=== PATIENT | male | born 1975 | race Caucasian/White ===

== ENCOUNTER 2020-02-06 01:56 | Inpatient (IN) | payer MEDICAID ==
[~2020-02-06] VITALS: Ht 185.4 cm; Wt 83.0 kg
[2020-02-06] MEDS ORDERED: SODIUM CHLORIDE 0.9% 1,000ML IVBOLUS ONE (02:00)
--- NOTE | 2020-02-06 02:08 | NUR ---
PT BIB [facility] FROM [facility]. PT PRESENTED THERE TODAY C/O N/V SINCE YESTERDAY. PT IS A DIABETIC AND REPORTED HIS BLOOD SUGARS HAD BEEN IN THE 300S. HE STEPPED ON A SPRING LAST WEEK AND WAS GETTING AN INFECTION. HE WAS SEEN AND WAS CURRENTLY BEING TREATED WITH CIPRO PO HOWEVER WAS CONTINUING TO GET WORSE. PT WAS FOUND TO BE IN [facility] AT THE SENDING FACILITY. HE WAS PLACED ON AN INSULIN DRIP AT 7.7 UNITS/HOUR, GIVEN A TOTAL OF 1600ML OF FLUID PRIOR TO ARRIVAL TO OUR ER, VANCOMYCIN IV, CIPRO IV AND PHENERGAN IM. UPON ARRIVAL TO THE ER, THE PT IS LETHARGIC BUT AROUSES TO VERBAL STIMULI. ANSWERS ORIENTATION QUESTIONS APPROPRIATELY. ALL MONITORING EQUIPMENT APPLIED, SHOWING SINUS TACH ON THE MONITOR AT A RATE OF 120, NO ECTOPY NOTED. ALL VITALS STABLE. EKG COMPLETE. PT HERE WITH CLOTHING, ONE CELL PHONE AND ONE BOOT. NO OTHER BELONGINGS PRESENT WITH PT. PT DENIES ANY NEEDS AT THIS TIME. DR. FORRESTER AT BEDSIDE EVALUATING PT
[2020-02-06 02:24] LABS: MEAN CORPUSCULAR HEMOGLOBIN 28.3 pg (27.5-34.5); MEAN CORPUSCULAR HGB CONC 32.1 g/dL (33.2-36.2); MEAN CORPUSCULAR VOLUME 87.9 fL (81-97); MEAN PLATELET VOLUME 7.5 fL (7.4-10.4); PLATELET COUNT 509 x10^3/uL (130-400); RED BLOOD COUNT 4.64 x10^6/uL (4.38-5.82); RED CELL DISTRIBUTION WIDTH 13.1 % (9.4-14.8)
[2020-02-06] MEDS ORDERED: SODIUM CHLORIDE 0.9% 1,000 ML IV ONE (02:24)
[2020-02-06] MEDS ORDERED: AMPICILLIN/SULBACTAM 3 GM in SODIUM CHLORIDE 0.9% 100 ML IV ONE (02:30)
[2020-02-06] MEDS ORDERED: SODIUM CHLORIDE FLUSH 10ML SYR IVF ONE (02:30)
[2020-02-06] MEDS ORDERED: REGULAR INSULIN 100 UNITS in SODIUM CHLORIDE 0.9% 99 ML IV PRN ×3 (02:30→03:54)
[2020-02-06] MEDS ORDERED: CIPROFLOXACIN/PMX 400MG/200ML 200 ML IV ONE (02:30)
[2020-02-06 02:34] LABS: ALANINE AMINOTRANSFERASE 17 U/L (12-78); ALBUMIN 2.9 g/dL (3.4-5.0); ANION GAP 20 mmol/L (5-15); CALCIUM 9.3 mg/dL (8.5-10.1); CHLORIDE 105 mmol/L (98-107); CREATININE 1.25 mg/dL (0.7-1.3)
[2020-02-06 02:37] LABS: ALKALINE PHOSPHATASE 117 U/L (45-117); BILIRUBIN,TOTAL 0.5 mg/dL (0.2-1.0); TOTAL PROTEIN 7.4 g/dL (6.4-8.2)
[2020-02-06] MEDS ORDERED: CIPROFLOXACIN/PMX 400MG/200ML 200 ML ONE (02:38)
--- NOTE | 2020-02-06 02:44 | NUR ---
PT VOIDED 950ML OF CLEAR YELLOW URINE
--- NOTE | 2020-02-06 02:45 | NUR ---
PT MEDICATED PER EMAR. 5 RIGHTS ADDRESSED
--- NOTE | 2020-02-06 02:50 | NUR ---
BLOOD GASES REDRAWN. CLARIFYING INSULIN TITRATION WITH PHARMACY AT THIS TIME. NO PROTOCOL LISTED IN EMAR.
[2020-02-06] MEDS ORDERED: PLEASE ENTER ALLERGIES MC SCH (03:00)
[2020-02-06 03:02] LABS: ACETONE, SERUM Large (80mg/dL) (Negative)
[2020-02-06 03:06] LABS: O2 FLOW 0 L/min; PH, VENOUS 7.156 pH (7.320-7.420)
[2020-02-06 03:13] LABS: BASOPHILS # (AUTO) 0.03 x10^3/uL (0-0.1); BASOPHILS % (AUTO) 0 % (0-1); EOSINOPHILS # (AUTO) 0.07 x10^3/uL (0-0.4); EOSINOPHILS % (AUTO) 0 % (1-7); LYMPHOCYTES # (AUTO) 0.89 x10^3/uL (1-3.4); LYMPHOCYTES % (AUTO) 5 % (22-44); MD SCAN; MONOCYTES # (AUTO) 0.77 x10^3/uL (0.2-0.8); MONOCYTES % (AUTO) 4 % (2-9); NEUTROPHILS # (AUTO) 17.77 x10^3/uL (1.8-6.8); NEUTROPHILS % (AUTO) 91 % (42-75)
[2020-02-06 03:13] LABS: HCT (SEDRATE) 37.2 % (39.2-51.8)
--- NOTE | 2020-02-06 03:39 | NUR ---
PT SLEEPING. AROUSES TO VERBAL STIMULI. REMAINS LETHARGIC. STILL ALERT AND ORIENTED. DENIES ANY NEEDS AT THIS TIME. AWAITING ROOM FOR PT IN CCU. ALL VITALS STABLE. WILL CONTINUE TO MONITOR.
[2020-02-06] MEDS: SODIUM CHLORIDE 0.9% 1,000 ML IV SCH ×3 (03:54→13:27)
[2020-02-06] MEDS: D5%-0.45NACL+KCL 20MEQ 1,000 ML IV SCH ×2 (03:54→09:33)
[2020-02-06] MEDS ORDERED: VANCOMYCIN PER PHARMACY MC PRN (04:00)
[2020-02-06] MEDS ORDERED: ONDANSETRON 2MG/ML, 2ML IV PRN (04:00)
[2020-02-06] MEDS ORDERED: PROMETHAZINE 25 MG/ML, 1ML IM PRN (04:00)
[2020-02-06] MEDS ORDERED: LACTULOSE 10 GM/15 ML UDC PO PRN (04:00)
[2020-02-06] MEDS ORDERED: ONDANSETRON ODT 4 MG PO PRN (04:00)
[2020-02-06] MEDS ORDERED: HYDROmorphone 2 MG/ML, 1ML IVPush PRN (04:00)
--- NOTE | 2020-02-06 04:12 | NUR ---
REPORT TO ANDRA HODGES
[2020-02-06 04:30] VITALS: BP 128/75
[2020-02-06 04:54] LABS: CHOL/HDL RATIO 2.6
[2020-02-06] MEDS ORDERED: PHARMACOKINETIC MONITORING MC PRN (05:00)
[2020-02-06] MEDS ORDERED: PHARMACOKINETIC CONSULTATION MC ONE (05:00)
[2020-02-06] MEDS ORDERED: FAMOTIDINE 20 MG/2 ML IVPush SCH (09:00)
[2020-02-06] MEDS ORDERED: ALBUMIN HUMAN 25% 100 ML ONE (09:38)
[2020-02-06] MEDS ORDERED: ALBUMIN HUMAN 5% 500 ML IV ONE (10:00)
[2020-02-06] MEDS ORDERED: GADOTERATE 7.5 MMOL/15 ML SYR ONE (10:20)
[2020-02-06] MEDS: PIPERACILLIN/TAZO/PMX 3.375GM 50 ML IV SCH ×3 (10:39→22:31)
[2020-02-06 11:10] LABS: ANION GAP 12 mmol/L (5-15); CHLORIDE 112 mmol/L (98-107); CREATININE 1.09 mg/dL (0.7-1.3)
[2020-02-06] MEDS: VANCOMYCIN 1,500 MG in SODIUM CHLORIDE 0.9% 250 ML IV SCH (12:56)
[2020-02-06] MEDS ORDERED: INSULIN GLARGINE 100 UNITS/ML, PEN SQ-INSULIN ONE (14:00)
[2020-02-06] MEDS ORDERED: ROSU10TA2 PO (14:30)
[2020-02-06] MEDS ORDERED: INSU100V8 SQ (14:30)
[2020-02-06] MEDS ORDERED: CLOP75TA52 PO (14:30)
[2020-02-06] MEDS ORDERED: INSU100I11 SC (14:30)
[2020-02-06] MEDS ORDERED: DILT120C80 PO (14:30)
[2020-02-06] MEDS ORDERED: CIPR500T87 PO (14:30)
[2020-02-06] MEDS: INSULIN LISPRO 100 UNITS/ML, PEN SQ-INSULIN SCH ×2 (16:38→20:54)
[2020-02-06] MEDS: ENALAPRILAT 1.25 MG/ML, 2ML IVPush PRN (16:38)
[2020-02-06 18:46] LABS: ANION GAP 9 mmol/L (5-15); CALCIUM 8.9 mg/dL (8.5-10.1); CHLORIDE 113 mmol/L (98-107); CREATININE 1.04 mg/dL (0.7-1.3)
[2020-02-06 19:12] VITALS: BP 157/77
[2020-02-06] MEDS: INSULIN GLARGINE 100 UNITS/ML, PEN SQ-INSULIN SCH (20:53)
[2020-02-06] MEDS: ATORVASTATIN 40 MG TABLET PO SCH (20:54)
[2020-02-06] MEDS ORDERED: TEMPLATE NON-FORMULARY MED. (Rosuvastatin Calcium** (Crestor**) 10 MG) PO SCH (21:00)
[2020-02-07 00:54] VITALS: BP 129/80
[2020-02-07] MEDS: VANCOMYCIN 1,500 MG in SODIUM CHLORIDE 0.9% 250 ML IV SCH ×3 (00:59→23:55)
[2020-02-07] MEDS: SODIUM CHLORIDE 0.9% 1,000 ML IV SCH ×2 (04:17→18:36)
[2020-02-07] MEDS: PIPERACILLIN/TAZO/PMX 3.375GM 50 ML IV SCH ×4 (04:20→21:53)
[2020-02-07 04:25] LABS: BASOPHILS # (AUTO) 0.05 x10^3/uL (0-0.1); BASOPHILS % (AUTO) 0 % (0-1); EOSINOPHILS # (AUTO) 0.13 x10^3/uL (0-0.4); EOSINOPHILS % (AUTO) 1 % (1-7); LYMPHOCYTES # (AUTO) 1.54 x10^3/uL (1-3.4); LYMPHOCYTES % (AUTO) 13 % (22-44); MD NO; MEAN CORPUSCULAR HEMOGLOBIN 28.5 pg (27.5-34.5); MEAN CORPUSCULAR HGB CONC 32.3 g/dL (33.2-36.2); MEAN CORPUSCULAR VOLUME 88.1 fL (81-97); MEAN PLATELET VOLUME 7.3 fL (7.4-10.4); MONOCYTES # (AUTO) 0.71 x10^3/uL (0.2-0.8); MONOCYTES % (AUTO) 6 % (2-9); NEUTROPHILS # (AUTO) 9.83 x10^3/uL (1.8-6.8); NEUTROPHILS % (AUTO) 80 % (42-75); PLATELET COUNT 418 x10^3/uL (130-400); RED BLOOD COUNT 3.91 x10^6/uL (4.38-5.82); RED CELL DISTRIBUTION WIDTH 13.2 % (9.4-14.8)
[2020-02-07 04:31] LABS: ANION GAP 7 mmol/L (5-15); CALCIUM 8.7 mg/dL (8.5-10.1); CHLORIDE 113 mmol/L (98-107)
[2020-02-07 07:58] VITALS: BP 173/91
[2020-02-07 08:28] VITALS: BP 166/88
[2020-02-07] MEDS: INSULIN LISPRO 100 UNITS/ML, PEN SQ-INSULIN SCH ×4 (08:34→21:09)
[2020-02-07] MEDS: INSULIN GLARGINE 100 UNITS/ML, PEN SQ-INSULIN SCH ×2 (08:35→21:09)
[2020-02-07] MEDS: CLOPIDOGREL 75 MG TABLET PO SCH (08:36)
[2020-02-07] MEDS: DILTIAZEM 120 MG CAP.ER.24H PO SCH (08:36)
[2020-02-07] MEDS: ACETAMINOPHEN 325 MG TABLET PO PRN ×2 (11:50→21:54)
[2020-02-07 14:26] VITALS: BP 133/82
[2020-02-07] MEDS ORDERED: GLUCAGON 1 MG IM PRN (18:00)
[2020-02-07] MEDS ORDERED: DEXTROSE 4 GM TAB.CHEW PO PRN (18:00)
[2020-02-07] MEDS ORDERED: DEXTROSE 50%, 50ML SYRINGE IVPush PRN (18:00)
[2020-02-07 18:40] VITALS: BP 155/83
[2020-02-07] MEDS: ENOXAPARIN 40 MG/0.4 ML SQ SCH (18:42)
[2020-02-07] MEDS: SODIUM CHLORIDE FLUSH 10ML SYR IVF SCH (21:00)
[2020-02-07] MEDS: ATORVASTATIN 40 MG TABLET PO SCH (21:04)
[2020-02-07] MEDS: LACTOBACILLUS CHEW TABLET PO SCH (21:04)
[2020-02-08 00:20] VITALS: BP 138/76
[2020-02-08] MEDS: PIPERACILLIN/TAZO/PMX 3.375GM 50 ML IV SCH ×4 (04:21→22:37)
[2020-02-08] MEDS: SODIUM CHLORIDE 0.9% 1,000 ML IV SCH ×2 (04:21→15:15)
[2020-02-08 05:37] LABS: BASOPHILS # (AUTO) 0.01 x10^3/uL (0-0.1); BASOPHILS % (AUTO) 0 % (0-1); EOSINOPHILS # (AUTO) 0.22 x10^3/uL (0-0.4); EOSINOPHILS % (AUTO) 2 % (1-7); LYMPHOCYTES # (AUTO) 1.68 x10^3/uL (1-3.4); LYMPHOCYTES % (AUTO) 18 % (22-44); MD NO; MEAN CORPUSCULAR HEMOGLOBIN 28.1 pg (27.5-34.5); MEAN CORPUSCULAR HGB CONC 32.1 g/dL (33.2-36.2); MEAN CORPUSCULAR VOLUME 87.8 fL (81-97); MEAN PLATELET VOLUME 6.8 fL (7.4-10.4); MONOCYTES # (AUTO) 0.44 x10^3/uL (0.2-0.8); MONOCYTES % (AUTO) 5 % (2-9); NEUTROPHILS # (AUTO) 6.78 x10^3/uL (1.8-6.8); NEUTROPHILS % (AUTO) 74 % (42-75); PLATELET COUNT 398 x10^3/uL (130-400); RED BLOOD COUNT 4.21 x10^6/uL (4.38-5.82); RED CELL DISTRIBUTION WIDTH 12.7 % (9.4-14.8)
[2020-02-08 05:43] LABS: ANION GAP 6 mmol/L (5-15); CALCIUM 8.5 mg/dL (8.5-10.1); CHLORIDE 109 mmol/L (98-107); CREATININE 0.72 mg/dL (0.7-1.3)
[2020-02-08 07:42] VITALS: BP 154/83
[2020-02-08] MEDS: DILTIAZEM 120 MG CAP.ER.24H PO SCH (07:51)
[2020-02-08] MEDS: CLOPIDOGREL 75 MG TABLET PO SCH (07:51)
[2020-02-08] MEDS: LACTOBACILLUS CHEW TABLET PO SCH (07:51)
[2020-02-08] MEDS: INSULIN GLARGINE 100 UNITS/ML, PEN SQ-INSULIN SCH ×2 (07:52→22:38)
[2020-02-08] MEDS: SODIUM CHLORIDE FLUSH 10ML SYR IVF SCH ×2 (07:53→22:40)
[2020-02-08] MEDS: INSULIN LISPRO 100 UNITS/ML, PEN SQ-INSULIN SCH ×4 (07:53→22:40)
[2020-02-08] MEDS: ACETAMINOPHEN 325 MG TABLET PO PRN (08:05)
[2020-02-08] MEDS: VANCOMYCIN 1,500 MG in SODIUM CHLORIDE 0.9% 250 ML IV SCH (12:02)
[2020-02-08 13:16] VITALS: BP 166/91
[2020-02-08 15:03] LABS: MICROSCOPIC NOT IND
[2020-02-08] MEDS: ENOXAPARIN 40 MG/0.4 ML SQ SCH (16:32)
[2020-02-08] MEDS: ATORVASTATIN 40 MG TABLET PO SCH (20:30)
[2020-02-08 20:35] VITALS: BP 175/88
[2020-02-08] MEDS: ENALAPRILAT 1.25 MG/ML, 2ML IVPush PRN (20:47)
[2020-02-08 23:06] VITALS: BP 158/81
[2020-02-09] MEDS: VANCOMYCIN 1,500 MG in SODIUM CHLORIDE 0.9% 250 ML IV SCH (00:47)
[2020-02-09 00:54] VITALS: BP 129/72
[2020-02-09] MEDS: ACETAMINOPHEN 325 MG TABLET PO PRN (01:00)
[2020-02-09] MEDS: PIPERACILLIN/TAZO/PMX 3.375GM 50 ML IV SCH (06:05)
[2020-02-09] MEDS: INSULIN LISPRO 100 UNITS/ML, PEN SQ-INSULIN SCH ×3 (07:00→17:08)
[2020-02-09 07:30] VITALS: BP 161/90
[2020-02-09] MEDS: SODIUM CHLORIDE 0.9% 1,000 ML IV SCH (08:10)
[2020-02-09] MEDS: CLOPIDOGREL 75 MG TABLET PO SCH (08:55)
[2020-02-09] MEDS: SODIUM CHLORIDE FLUSH 10ML SYR IVF SCH (08:55)
[2020-02-09] MEDS: DILTIAZEM 120 MG CAP.ER.24H PO SCH (08:55)
[2020-02-09] MEDS: INSULIN GLARGINE 100 UNITS/ML, PEN SQ-INSULIN SCH (08:57)
[2020-02-09] MEDS ORDERED: AMOXICILLIN/CLAV 875-125MG TABLET PO SCH (11:30)
[2020-02-09 14:08] VITALS: BP 155/80
[2020-02-09] MEDS ORDERED: AMOX1TAB12 PO (15:36)
== END 2020-02-09 18:45 | disposition home or self-care (01) | DRG 720 ==
LOC: ED 03:40 → EDIP 03:45 → CCU 04:45 → 3N 18:38
PROVIDERS: ADMIT Family Medicine; ATTEND Hospitalist
DX: A41.9 Sepsis, unspecified organism (principal); E87.5 Hyperkalemia; E86.0 Dehydration; L03.115 Cellulitis of right lower limb; M60.9 Myositis, unspecified; E78.5 Hyperlipidemia, unspecified; E10.42 Type 1 diabetes mellitus with diabetic polyneuropathy; E10.10 Type 1 diabetes mellitus with ketoacidosis without coma; D63.8 Anemia in other chronic diseases classified elsewhere; Z79.02 Long term (current) use of antithrombotics/antiplatelets; Z79.4 Long term (current) use of insulin; Z83.3 Family history of diabetes mellitus; Z86.73 Personal history of transient ischemic attack (TIA), and cerebral infarction without residual deficits
CPT/HCPCS: 36415; 71045; 80048; 80053; 80061; 80202; 81003; 82010; 82803; 82962; 83036; 83605; 83690; 83735; 84100; 84145; 84443; 85025; 85651; 86140; 87040; 87070; 87077; 87081; 87186; 87205; 93005; 96374; 99285; G0378; J0295; J0744; J1650; J2543; J3370; P9045; A9575; J1815; J3480; J3490; J7030; J7050